=== PATIENT | male | born 1985 | race Caucasian/White ===

== ENCOUNTER 2019-06-10 19:26 | Emergency (ER) | payer OTHER ==
[2019-06-10 19:50] LABS: ABS Basophils 0.1 10^3/ul (0-0.2); ABS Eosinophils 0.2 10^3/ul (0-0.6); ABS Lymphocytes 2.7 10^3/ul (1.0-4.8); ABS Monocytes 0.4 10^3/ul (0-0.8); ABS Neutrophils 4.1 10^3/ul (1.5-7.7); Eosinophil % 2.2 %; Hematocrit 43 % (42-52); Lymphocyte % 36.4 %; Mean Corpuscular HGB Conc 35 g/dL (31-36); Mean Corpuscular Hemoglobin 30 pg (27-31); Mean Corpuscular Volume 86 fL (80-94); Mean Platelet Volume 8.3 fL (7.4-10.4); Platelet Count 251 10^3/uL (150-450); Red Blood Count 5.03 10^6 /uL (4.18-5.48); Red Cell Distribution Width 13 % (10-15); White Blood Count 7.4 10^3/uL (3.5-10.8)
--- NOTE | 2019-06-10 20:04 | ED ---
HPI Chest Pain - HPI Summary HPI Summary: 34-year-old male presents to the emergency department today with chief complaint of 3 out of 10 sternal constant chest pressure which he has had for approximately 3 days. Patient states pain began while he was at rest and has no associated diaphoresis, shortness of breath, abdominal pain, arm pain, jaw pain. Patient states with his chest pain he occasionally has lightheadedness. Patient states his chest pain is nonexertional. Patient has never had a patient states he has a past medical history of hyper-hyperlipidemia but denies hypertension, smoking, diabetes. Patient states she has a past family history of heart disease. Patient denies recent recreational drug use but endorses recent alcohol use. Patient isn't at this time in no acute distress and resting comfortably on the stretcher. - History of Current Complaint Chief Complaint: EDChestPainROMI Time Seen by Provider: 06/10/19 19:51 Hx Obtained From: Patient Onset/Duration: Started Days Ago Timing: Constant Initial Severity: Mild Current Severity: Mild Pain Intensity: 1 Pain Scale Used: 0-10 Numeric Chest Pain Location: Mid Sternal Chest Pain Radiates: No Character: Pressure/Squeezing Aggravating Factor(s): Nothing Alleviating Factor(s): Nothing Associated Signs and Symptoms: Positive: Chest Pain, Recent Stress. Negative: Vision Changes, Shortness of Breath, Fever, Nausea, Cough, Back Pain, Abdominal Pain, Vomiting, Wheezing, Nasal Congestion, URI - Allergy/Home Medications Allergies/Adverse Reactions: Allergies Allergy/AdvReac Type Severity Reaction Status Date / Time Pertussis Vaccines Allergy Unknown Verified 06/10/19 19:36 Reaction Details PMH/Surg Hx/FS Hx/Imm Hx Infectious Disease History: No Infectious Disease History: Denies: Traveled Outside the [place] in Last 30 Days Review of Systems Constitutional: Negative Eyes: Negative ENT: Negative Positive: Chest Pain. Negative: Palpitations Respiratory: Negative Gastrointestinal: Negative Genitourinary: Negative Musculoskeletal: Negative Skin: Negative Neurological/Mental Status: Negative Psychological: Normal All Other Systems Reviewed And Are Negative: Yes Physical Exam Triage Information Reviewed: Yes Vital Signs On Initial Exam: Initial Vitals Temp Pulse Resp BP Pulse Ox 98.4 F 80 16 147/96 98 06/10/19 19:34 06/10/19 19:34 06/10/19 19:34 06/10/19 19:34 06/10/19 19:34 Vital Signs Reviewed: Yes Appearance: Positive: Well-Appearing, No Pain Distress, Well-Nourished Procedures - Sedation Patient Received Moderate/Deep Sedation with Procedure: No Diagnostics - Vital Signs Vital Signs Temp Pulse Resp BP Pulse Ox 06/10/19 19:34 98.4 F 80 16 147/96 98 - Laboratory Lab Results: Lab Results 06/10/19 Range/Units 19:42 WBC 7.4 (3.5-10.8) 10^3/uL RBC 5.03 (4.18-5.48) 10^6 /uL Hgb 15.0 (14.0-18.0) g/dL Hct 43 (42-52) % MCV 86 (80-94) fL MCH 30 (27-31) pg MCHC 35 (31-36) g/dL RDW 13 (10-15) % Plt Count 251 (150-450) 10^3/uL MPV 8.3 (7.4-10.4) fL Neut % (Auto) 54.9 % Lymph % (Auto) 36.4 % [place] % (Auto) 5.7 % Eos % (Auto) 2.2 % Baso % (Auto) 0.8 % Absolute Neuts (auto) 4.1 (1.5-7.7) 10^3/ul Absolute Lymphs (auto) 2.7 (1.0-4.8) 10^3/ul Absolute Monos (auto) 0.4 (0-0.8) 10^3/ul Absolute Eos (auto) 0.2 (0-0.6) 10^3/ul Absolute Basos (auto) 0.1 (0-0.2) 10^3/ul Absolute Nucleated RBC 0.0 10^3/ul Nucleated RBC % 0.0 Result Diagrams: 06/10/19 19:42 06/10/19 19:42 Lab Statement: Any lab studies that have been ordered have been reviewed, and results considered in the medical decision making process. Chest Pain Course/Dx - Course Course Of Treatment: Patient was evaluated in the emergency department today for chest pain. Vitals noted and stable. EKG was done promptly which shows no evidence of STEMI. Normal sinus rhythm at a rate of 66 bpm. Normal axis, [place], QT interval. There are mild T-wave inversions in lead 3. There are no priors available for comparison. Heart score: 2. PERC negative. Wells score for PE 0. Laboratory studies returned showing no leukocytosis, anemia, electrolyte disturbance. Initial troponin 0.00. Serial troponins are deemed not necessary as patient has been symptomatic for 3 days. Patient appears to not be suffering from acute cardiac problem requiring intervention at this time. Patient discharged to outpatient follow-up. PE was considered however thought very unlikely due to Wells score. - Chest Pain Differential Diagnosis/HQI/PQRI: Acute AL, ACS, Angina, CHF, Chest Wall, Pulmonary Embolism - Diagnoses Provider Diagnoses: Atypical chest pain Discharge ED - Sign-Out/Discharge Documenting (check all that apply): Patient Departure - Discharge Plan Condition: Stable Disposition: HOME Patient Education Materials: Chest Pain (ED) Referrals: No Primary Care Phys,NOPCP [Primary Care Provider] - Louie Marie MD [Medical Doctor] - 3 Days Additional Instructions: You were seen in the emergency department today due to chest pain. Cardiac workup was done today including an EKG and blood work which found no evidence of acute pathology requiring intervention at this time. Although I am uncertain what is causing your symptoms cardiac origin cannot be ruled out. Please follow- up with your primary care provider or printing specialist in 3 days for further evaluation and management. Please return to this emergency Department immediately if you develop any new or worsening symptoms. - Billing Disposition and Condition Condition: STABLE Disposition: Home - Attestation Statements Provider Attestation: I was available for consultation for this patient. I did not evaluate the patient or participate in any medical decision making or disposition decisions unless I am specifically named in the chart as having consulted on the patient. If I have consulted on the patient, please see my own ED note on the patient encounter. You Modi MD
[2019-06-10 20:09] LABS: INR 0.97 (0.82-1.09)
[2019-06-10 20:13] LABS: Albumin/Globulin Ratio 1.8 (1-3); EGFR African American 96.8 (>60); Globulin 2.8 g/dL (2-4); Potassium 3.7 mmol/L (3.5-5.0); Total Bilirubin 0.5 mg/dL (0.2-1.0); Total Protein 7.8 g/dL (6.4-8.9)
[2019-06-10 21:00] VITALS: BP 127/78
== END 2019-06-10 20:40 | disposition home or self-care (01) ==
LOC: ED 19:26
DX: R07.89 Other chest pain (principal)
CPT/HCPCS: 36415; 80053; 84484; 85025; 85610; 93005; 99282

== ENCOUNTER → 2019-06-15 01:53 | Emergency (ER) | payer OTHER ==
--- NOTE | 2019-06-15 04:47 | ED ---
HPI Chest Pain - HPI Summary HPI Summary: Patient is a 34 y/o M presenting to [facility] with a chief complaint of chest pain worsening in the last few weeks. He reports that at initial onset, he felt diffuse chest pressure intermittently which he never experienced before. About a week ago, the pressure became more prevalent, and he developed lightheadedness. On 06/10/2019, he came to the ED with a negative cardiac workup. He was advised to follow up with his PCP but has been unable to get an appointment. Yesterday morning, the pain changed into stabbing pain and began radiating to the left arm into the back. This morning, the pain woke him up from his sleep, but his pain is dull at this time. He notes palpitations rated 5 /10 in severity. He denies any nausea, diaphoresis, or shortness of breath. There are no aggravating or alleviating factors. He has not taken any medications [employer] for treatment. No previous stress tests. PMHx: HLD (not medicated), orchiopexy. FHx: cardiac disease, HTN, diabetes. Nonsmoker, weekly EtOH, no substance use. Medications reviewed. Allergies noted. - History of Current Complaint Hx Obtained From: Patient Onset/Duration: Started Days Ago, Still Present, Worse Since - yesterday Timing: Intermittent Initial Severity: Mild Current Severity: Moderate Pain Intensity: 5 Pain Scale Used: 0-10 Numeric Chest Pain Radiates: Yes Chest Pain Radiates To:: Back - left, Arm - left Character: Pressure/Squeezing, Sharp/Stabbing Aggravating Factor(s): Nothing Alleviating Factor(s): Nothing Associated Signs and Symptoms: Positive: Chest Pain, Palpitations. Negative: Shortness of Breath, Diaphoresis, Nausea - Allergy/Home Medications Allergies/Adverse Reactions: Allergies Allergy/AdvReac Type Severity Reaction Status Date / Time Pertussis Vaccines Allergy Unknown Verified 06/10/19 19:36 Reaction Details PMH/Surg Hx/FS Hx/Imm Hx Endocrine/Hematology History: Denies: Hx Diabetes Cardiovascular History: Reports: Hx Hypercholesterolemia Denies: Hx Hypertension Respiratory History: Denies: Hx Asthma - Surgical History Surgical History: Yes Surgery Procedure, Year, and Place: orchiopexy Infectious Disease History: Denies: Traveled Outside the [place] in Last 30 Days - Family History Known Family History: Positive: Cardiac Disease, Hypertension, Diabetes - Social History Alcohol Use: Weekly Alcohol Amount: 3-5 drinks a wk Hx Substance Use: No Substance Use Type: Reports: None Hx Tobacco Use: No Smoking Status (MU): Never Smoked Tobacco - Additional Comments History Additional Comments: hyperlipidemia Review of Systems - ROS Summary Review of Systems Summary: No home medications. Negative: Skin Diaphoresis Positive: Palpitations, Chest Pain - pressure turned into stabbing, radiating into arm and back Negative: Nausea All Other Systems Reviewed And Are Negative: Yes Physical Exam - Summary Physical Exam Summary: General: Well-developed, Well-nourished male. No acute distress. HEENT: Normocephalic, Atraumatic. Eyes: Conjuctiva normal, PERRL. Oropharynx: Clear, mucous membranes moist, (-) exudates. Neck: Soft, FROM, (-) lymphadenopathy, (-) thyromegaly, (-) JVD. Cardiovascular: Normal sinus rhythm, (-) murmur. Lungs: Clear to auscultation bilaterally (-) wheezes, (-) rales, (-) rhonchi. Abdomen: Soft, non-tender, non-distended, (-) organomegaly, normal bowel sounds. Back: (-) CVA tenderness Extremities: No edema. Skin: Warm, dry, (-) rash. Neuro: Alert and oriented x3, moves all extremities equally. No ataxia. No gait disturbance. No sensory deficit. Normal strength, normal sensation. Psychiatric: Mood normal, affect normal. Triage Information Reviewed: Yes Vital Signs Reviewed: Yes Procedures - Sedation Patient Received Moderate/Deep Sedation with Procedure: No Diagnostics - Laboratory Result Diagrams: 06/15/19 02:45 06/15/19 02:45 Lab Statement: Any lab studies that have been ordered have been reviewed, and results considered in the medical decision making process. - Radiology CXR Radiology Interpretation Completed By: ED Physician Summary of Radiographic Findings: No infiltrate. No pleural effusion. ED physician has reviewed and interpreted this imaging scan. Pending official read. - EKG 0154 Cardiac Rate: NL - 80 BPM EKG Rhythm: Sinus Rhythm Summary of EKG Findings: EKG at 0154 reveals normal sinus rhythm with rate of 80 BPM, no acute changes, no ischemic changes. This EKG was reviewed and interpreted by Dr. Fernández. Re-Evaluation - Re-Evaluation First Eval Re-Evaluation Time: 05:55 Comment: I discussed all results. Discussed all symptoms that warrant return to the ED. Chest Pain Course/Dx - Course Course Of Treatment: 34-year-old male presents from home with chest pain. has been having chest pains last few weeks. worse in the last week. He did come in for a cardiac workup a week ago which was negative. However the pain has now changed. he describes the pain as stabbing. Radiating to his left arm at this time. also accompanied with some lightheadedness intermittently. This morning, the pain woke him up from his sleep, but his pain is dull at this time. He notes palpitations rated 5/10 in severity. no shortness of breath, nausea, diaphoresis. Nothing really seems to make it worse or better. Did not take any medications for his symptoms tonight prior to arrival. No previous stress tests. PMHx: HLD (not medicated). family history of coronary artery disease. Meds: none - Diagnoses Provider Diagnoses: Chest pain Discharge ED - Sign-Out/Discharge Documenting (check all that apply): Patient Departure - discharge - Discharge Plan Condition: Stable Disposition: HOME Patient Education Materials: Chest Pain (DC) Referrals: [facility] [Outside] - 3 Days Additional Instructions: Follow up with your primary care provider in 2-3 days. Return to the emergency department for any new or worsening symptoms. - Billing Disposition and Condition Condition: STABLE Disposition: Home - Attestation Statements Document Initiated by Alistair: Yes Documenting Scribe: Aruna Severino Provider For Whom Alistair is Documenting (Include Credential): Buffy Fernández MD Scribe Attestation: Aruna Nance, ashliibed for Buffy Fernández MD on 06/19/19 at 2202. Scribe Documentation Reviewed: Yes Provider Attestation: The documentation as recorded by the Aruna elliott accurately reflects the service I personally performed and the decisions made by me, Buffy Fernández MD Status of Scribbennie Document: Viewed
[2019-06-15 05:12] LABS: BUN/Creatinine Ratio 20.4 (8-20); Calcium 9.5 mg/dL (8.6-10.3); EGFR African American 105.9 (>60); EGFR Non-African American 87.6 (>60); Potassium 3.8 mmol/L (3.5-5.0)
[2019-06-15 05:13] LABS: Albumin 4.4 g/dL (3.2-5.2); Albumin/Globulin Ratio 1.6 (1-3); Globulin 2.8 g/dL (2-4); Total Bilirubin 0.4 mg/dL (0.2-1.0); Total Protein 7.2 g/dL (6.4-8.9)
[2019-06-15 05:14] LABS: Hematocrit 43 % (42-52); Hemoglobin 14.7 g/dL (14.0-18.0); Mean Corpuscular HGB Conc 34 g/dL (31-36); Mean Corpuscular Hemoglobin 30 pg (27-31); Mean Corpuscular Volume 86 fL (80-94); Red Blood Count 4.95 10^6 /uL (4.18-5.48); White Blood Count 6.4 10^3/uL (3.5-10.8)
[2019-06-15 05:15] LABS: ABS Eosinophils 0.3 10^3/ul (0-0.6); ABS Lymphocytes 2.2 10^3/ul (1.0-4.8); ABS Monocytes 0.5 10^3/ul (0-0.8); ABS Neutrophils 3.5 10^3/ul (1.5-7.7); Eosinophil % 3.9 %; Lymphocyte % 34.3 %; Mean Platelet Volume 8.1 fL (7.4-10.4); Nucleated Red Blood Cells % 0.1; Platelet Count 218 10^3/uL (150-450); Red Cell Distribution Width 13 % (10-15)
[2019-06-15 05:16] LABS: Activated Partial Thrombo Time 32.5 seconds (26.0-38.0); INR 0.97 (0.82-1.09)
[2019-06-15 06:52] VITALS: BP 117/73
== END | disposition home or self-care (01) ==
LOC: ED 01:53
DX: R07.89 Other chest pain (principal); R00.2 Palpitations; Z88.7 Allergy status to serum and vaccine; Z82.49 Family history of ischemic heart disease and other diseases of the circulatory system; Z83.3 Family history of diabetes mellitus
CPT/HCPCS: 36415; 71045; 80053; 83880; 84484; 85025; 85610; 85730; 99283